=== PATIENT | female | born 1990 | race African-American/Black ===

== ENCOUNTER 2018-08-26 08:29 | Emergency (ER) | payer MEDICAID ==
[~2018-08-26] VITALS: Ht 167.6 cm; Wt 59.1 kg
[~2018-08-26 08:29] MED LIST: FERR325T23; PREN1TAB19
[2018-08-26 08:32] VITALS: BP 123/86
[2018-08-26] MEDS ORDERED: ACETAMINOPHEN 325MG TABLET PO ONE ×2 (09:00→09:15)
[2018-08-26] MEDS ORDERED: LORAZEPAM 0.5MG TABLET PO ONE (09:00)
[2018-08-26] MEDS ORDERED: ACETAMINOPHEN 325MG TABLET ONE (09:22)
== END 2018-08-26 10:00 | disposition home or self-care (01) ==
LOC: ER 09:57
DX: O29.41 Spinal and epidural anesthesia induced headache during pregnancy, first trimester (principal); O26.891 Other specified pregnancy related conditions, first trimester; G47.00 Insomnia, unspecified; Z3A.12 12 weeks gestation of pregnancy; Z88.6 Allergy status to analgesic agent; Z79.899 Other long term (current) drug therapy
CPT/HCPCS: 81025; 99282

== ENCOUNTER 2018-08-27 09:50 | Emergency (ER) | payer MEDICAID ==
[~2018-08-27] VITALS: Ht 167.6 cm; Wt 59.0 kg
[2018-08-27] MEDS ORDERED: SODIUM CHLORIDE 0.9% 1,000 ML IV ONE ×2 (11:10→13:13)
[2018-08-27] MEDS ORDERED: ACETAMINOPHEN 325MG TABLET PO STA (11:10)
[2018-08-27] MEDS ORDERED: METOCLOPRAMIDE HCL 10MG/2ML VIAL IV ONE (11:15)
[2018-08-27 11:24] LABS: BASOPHILS % 0.6 % (0.0-2.0); CHLORIDE 103 mEq/L (98-107); EOSINOPHILS % 0.7 % (0.0-5.0); HEMATOCRIT. 39.7 % (36.0-48.0); HEMOGLOBIN. 13.7 g/dL (12.0-16.0); MEAN CORPUSCULAR HEMOGLOBIN 30.7 pg (28.0-32.0); MEAN CORPUSCULAR VOLUME 88.8 fL (81.0-99.0); MEAN PLATELET VOLUME 8.5 fl (7.4-10.4); NEUTROPHILS % 60.7 % (40.0-76.0); PLATELET 419 x1000/uL (130-400); RED BLOOD CELL COUNT 4.47 mill/uL (4.2-5.4); RED CELL DISTRIBUTION WIDTH 13.3 % (11.6-14.6)
[2018-08-27 12:29] LABS: CLARITY URINE CLEAR (CLEAR); COLOR URINE YELLOW (YELLOW); KETONES URINE TRACE (NEGATIVE); LEUKOCYTE ESTERASE URINE NEGATIVE (NEGATIVE); NITRITE URINE NEGATIVE (NEGATIVE); OCCULT BLOOD URINE NEGATIVE (NEGATIVE); PH URINE 6.5 (4.5-8.0); PROTEIN URINE NEGATIVE (NEGATIVE); SPECIFIC GRAVITY URINE 1.027 (1.005-1.030)
[2018-08-27 15:59] VITALS: BP 102/66
== END 2018-08-27 16:18 | disposition home or self-care (01) ==
LOC: ER 11:15
DX: O99.89 Other specified diseases and conditions complicating pregnancy, childbirth and the puerperium (principal); R51 Headache; E16.2 Hypoglycemia, unspecified; R03.0 Elevated blood-pressure reading, without diagnosis of hypertension; Z3A.00 Weeks of gestation of pregnancy not specified
CPT/HCPCS: 36415; 80053; 81003; 81025; 85025; 96374; 99285; J2765; J7030